=== PATIENT | female | born 1965 | race Caucasian/White ===

== ENCOUNTER 2018-12-17 15:17 | Emergency (ER) | payer OTHER ==
[~2018-12-17] VITALS: Ht 152.4 cm; Wt 74.8 kg
[~2018-12-17 15:17] MED LIST: BUSP15 PO; Celexa40 MG PO
[2018-12-17] MEDS ORDERED: Ocuflox5 ML RIGHTEYE (16:04)
== END 2018-12-17 16:14 | disposition home or self-care (01) ==
LOC: ER 15:17
DX: S05.01XA Injury of conjunctiva and corneal abrasion without foreign body, right eye, initial encounter (principal); Z88.1 Allergy status to other antibiotic agents; Z88.2 Allergy status to sulfonamides; Z91.040 Latex allergy status; Z88.8 Allergy status to other drugs, medicaments and biological substances; X58.XXXA Exposure to other specified factors, initial encounter
CPT/HCPCS: 99283

== ENCOUNTER → 2019-12-06 | Outpatient (CLI) | payer OTHER ==
[~2019-12-06] MED LIST changes: +Ocuflox5 ML RIGHTEYE
== END | disposition home or self-care (01) ==
LOC: PLD 14:42 → LAB SHORT 14:42
DX: L57.0 Actinic keratosis (principal)
CPT/HCPCS: 88305

== ENCOUNTER 2020-03-26 11:00 | Day surgery (SDC) | payer OTHER ==
[~2020-03-26] VITALS: Ht 154.9 cm; Wt 78.2 kg
[~2020-03-26 11:00] MED LIST changes: +OMEP20ER PO
--- NOTE | 2020-03-26 12:18 | NUR ---
03/26/20 1218 Nasima Valdez NERVE BLOCK DONE AT BEDSIDE BY MD SIGALA, PT TOLERATED THE PROCEDURE W/O INCIDENT.
--- NOTE | 2020-03-26 14:59 | NUR ---
03/26/20 1459 Nasima Valdez INCENTIVE SPIROMETER TEACHING DONE WITH RETURN DEMO BY PT.
== END 2020-03-26 15:30 | disposition home or self-care (01) ==
LOC: ORSCSDS 11:00
PROVIDERS: Orthopaedic Surgery
PROC: 0RHJ44Z Insertion of Internal Fixation Device into Right Shoulder Joint, Percutaneous Endoscopic Approach (ICD-10-PCS; principal; 2020-03-26 13:00)
PROC: 0LQ14ZZ Repair Right Shoulder Tendon, Percutaneous Endoscopic Approach (ICD-10-PCS; principal; 2020-03-26 13:00)
PROC: 0LS34ZZ Reposition Right Upper Arm Tendon, Percutaneous Endoscopic Approach (ICD-10-PCS; principal; 2020-03-26 13:00)
PROC: 0RNJ4ZZ Release Right Shoulder Joint, Percutaneous Endoscopic Approach (ICD-10-PCS; principal; 2020-03-26 13:00)
DX: M75.111 Incomplete rotator cuff tear or rupture of right shoulder, not specified as traumatic (principal); M75.41 Impingement syndrome of right shoulder; S46.101A Unspecified injury of muscle, fascia and tendon of long head of biceps, right arm, initial encounter
CPT/HCPCS: C1713; J0171; J0690; J1100; J2250; J2370; J2405; J2704; J2765; J3010; J7120

== ENCOUNTER → 2024-02-17 | Outpatient (CLI) | payer OTHER ==
[2024-02-28 14:21] LABS: HPV HIGH RISK BY TMA Not Detected; HPV SOURCE Cervical
== END | disposition home or self-care (01) ==
LOC: LAB SHORT 10:26 → LAB 10:26
PROVIDERS: Obstetrics & Gynecology
DX: Z01.419 Encounter for gynecological examination (general) (routine) without abnormal findings (principal)
CPT/HCPCS: 87624; G0123

== ENCOUNTER → 2024-02-17 | Outpatient (CLI) | payer OTHER | END | disposition home or self-care (01) | LOC: LAB 13:21 → LAB SHORT 13:21 | DX: N95.0 Postmenopausal bleeding (principal) | CPT/HCPCS: 88305 ==

== ENCOUNTER 2024-03-20 08:52 | Day surgery (SDC) | payer OTHER | END 2024-04-09 02:20 | disposition home or self-care (01) | LOC: MOI MAM 08:52 → MOI US 09:30 → MOI MAM 09:30 | DX: C50.511 Malignant neoplasm of lower-outer quadrant of right female breast (principal); Z17.0 Estrogen receptor positive status [ER+]; Z17.21 Progesterone receptor positive status; Z17.32 Human epidermal growth factor receptor 2 negative status | CPT/HCPCS: 19083; 77065; 88305; 88342; 88360; A4648; G0279 ==

== ENCOUNTER 2024-04-27 08:16 | Day surgery (SDC) | payer OTHER ==
[2024-04-27] VITALS (11 sets, daily range): BP systolic 120–155; BP diastolic 77–105
[~2024-04-27 08:16] MED LIST changes: +ATOR40TA PO; +CeFAZolin Sodium 2,000 MG in NS 100 ML IV SCH; +Lactated Ringer's 1,000 ML IV SCH; +PROP60
[2024-04-27] MEDS ORDERED: CeFAZolin Sodium 2,000 MG VIAL ONE (08:49)
[2024-04-27] MEDS ORDERED: propofoL 20 ML IV ONE (09:20)
[2024-04-27] MEDS ORDERED: FentaNYL Citrate 50 MCG/ML 2 ML Injection ONE ×2 (09:20→11:24)
[2024-04-27] MEDS ORDERED: Midazolam HCl 1MG / ML 2ML Vial IV ONE (09:20)
[2024-04-27] MEDS ORDERED: Bupivacaine 0.5% HCl 5 MG/ML 30MLVIAL ONE (09:31)
[2024-04-27] MEDS ORDERED: Metoclopramide HCl 5MG / ML 2ML Vial ONE (11:24)
[2024-04-27] MEDS ORDERED: HYDROcodone 5-APAP 325 TAB PO PRN (11:35)
--- NOTE | 2024-04-27 11:50 | NUR ---
PT TO DAY SURGERY STEP DOWN FROM PACU FROM RIGHT BREAST LUMPECTOMY; BEDSIDE REPORT RECEIVED. PT IS AWAKE, ALERT AND ORIENTED; ABLE TO MOVE SELF IN BED. PT HAS 2 INCISION SITES ON RIGHT BREAST THAT ARE CLOSED WITH EXOFIN AND ARE C/D/I. PT HAS BREAST BINDER IN PLACE AND ICE PACK TO INCISION SITES. PT STATES PAIN IS TOLERABLE AT A 1/10.
--- NOTE | 2024-04-27 12:00 | NUR ---
INCISIONS REMAIN C/D/I. AT BEDSIDE. PT TOLERATING PO FLUIDS.
--- NOTE | 2024-04-27 12:15 | NUR ---
Discharge instructions reviewed with patient. Patient verbalizes understanding. Copy given to patient to take home. Patient States Post-Procedure ride home has been arranged.
--- NOTE | 2024-04-27 12:27 | NUR ---
Patient up to Ambulate independently. Gait steady. Discharged via wheelchair to private car for ride home.
== END 2024-04-27 12:28 | disposition home or self-care (01) ==
LOC: ORSCMMR 08:16 → NM 08:16 → ORSCMMR 08:20 → NM 08:30
PROVIDERS: Surgery
PROC: 07B50ZX Excision of Right Axillary Lymphatic, Open Approach, Diagnostic (ICD-10-PCS; principal; 2024-04-27 09:00)
PROC: 0HBT0ZZ Excision of Right Breast, Open Approach (ICD-10-PCS; principal; 2024-04-27 09:00)
DX: C50.911 Malignant neoplasm of unspecified site of right female breast (principal); C77.3 Secondary and unspecified malignant neoplasm of axilla and upper limb lymph nodes; Z17.0 Estrogen receptor positive status [ER+]; Z17.21 Progesterone receptor positive status; Z17.32 Human epidermal growth factor receptor 2 negative status; K21.9 Gastro-esophageal reflux disease without esophagitis; F41.9 Anxiety disorder, unspecified; F32.A Depression, unspecified; E78.00 Pure hypercholesterolemia, unspecified; I12.9 Hypertensive chronic kidney disease with stage 1 through stage 4 chronic kidney disease, or unspecified chronic kidney disease; N18.9 Chronic kidney disease, unspecified; R73.03 Prediabetes; Z79.899 Other long term (current) drug therapy
CPT/HCPCS: 38792; 76098; 88307; A9270; A9520; J0690; J2250; J2704; J2765; J3010; J7120